=== PATIENT | female | born 1995 | race Caucasian/White ===

== ENCOUNTER 2017-09-24 18:33 | Emergency (ER) | payer MEDICAID ==
[2017-09-24 18:36] VITALS: BMI 32.5
[2017-09-24 18:40] VITALS: BP 116/74; PULSE 95; O2SAT 97
--- NOTE | 2017-09-24 19:28 | C.PDOC ---
History Of Present Illness 21 year old female presents to the emergency department complaining of low grade fever, body aches, sore throat and cough gradually developed for the past 48 hrs. Otherwise, pt denies high fever. headache, dizziness, neck pain, drooling, dypshagia, dyspnea, CP, SOB, wheezing, abd. pain, nausea, vomiting, diarrhea, UTI sx. Ambulate to Ed for evaluation, not in any apparent distress. PMD: Dr. Jerod Olsen Time Seen by Provider: 09/24/17 19:20 Chief Complaint (Nursing): Fever History Per: Patient History/Exam Limitations: no limitations Onset/Duration Of Symptoms: Days (x2) Current Symptoms Are (Timing): Still Present Associated Symptoms: Fever, Sore Throat, Cough Past Medical History Reviewed: Historical Data, Nursing Documentation, Vital Signs Vital Signs: Last Vital Signs Temp 100.5 F H 09/24/17 18:46 Pulse 95 H 09/24/17 18:37 Resp 18 09/24/17 18:37 BP 116/74 09/24/17 18:37 Pulse Ox 97 09/24/17 19:48 - Medical History PMH: Hyperthyroidism, Hypothyroidism Surgical History: Tonsillectomy Other Surgeries: Bariatric Sleeve Surgery - [facility] Procedures APPLICATION OF SPLINT (10/07/14) Family History: States: Unknown Family Hx - Social History Hx Tobacco Use: No Hx Alcohol Use: No Hx Substance Use: No - Immunization History Hx Tetanus Toxoid Vaccination: No Hx Influenza Vaccination: Yes Hx Pneumococcal Vaccination: No Review Of Systems Except As Marked, All Systems Reviewed And Found Negative. Constitutional: Positive for: Fever, Other (Body aches) ENT: Positive for: Throat Pain Cardiovascular: Negative for: Chest Pain Respiratory: Positive for: Cough. Negative for: Shortness of Breath, Sputum Gastrointestinal: Negative for: Nausea, Vomiting, Diarrhea Physical Exam - Physical Exam Appears: Well, Non-toxic, No Acute Distress Skin: Normal Color, Warm, Dry, No Rash Head: Normacephalic Eye(s): bilateral: PERRL Ear(s): Bilateral: Normal Nose: No Flaring, Discharge (scant clear rhinorrhea B/L) Oral Mucosa: Moist, No Drooling Tongue: Normal Appearing Lips: Normal Appearing Throat: Erythema (mild pharyngeal ), No Drooling Neck: Trachea Midline, Supple, Other ((-) meningeal sign) Cardiovascular: Rhythm Regular, No Murmur Respiratory: No Decreased Breath Sounds, No Accessory Muscle Use, No Rales, No Rhonchi, No Wheezing Gastrointestinal/Abdominal: Soft, No Tenderness, No Distention, No Guarding Back: No CVA Tenderness Extremity: Normal ROM, No Pedal Edema, No Deformity Neurological/Psych: Oriented x3 ED Course And Treatment O2 Sat by Pulse Oximetry: 97 (RA) Pulse Ox Interpretation: Normal Progress Note: On re-evaluation, pt is afebrile, hemodynamicaly stable. Nn- toxic, tolerate PO wlel in ED. PulsEOx 97% RA. ENT: no acute findings. Neck : SUpple, (-) meningeal sign. Lungs: CTA B/L, BS equal B/L. Abd: benign, (-) guaridng, (-) rebound. back: (-) CVA tenderness. Pt nakia clinical findings c/w Influenza-like illness. Pt advised. ref. to f/u with PMD in 2-3 days for re- eval. return to ED if any worsening or new changes. Medical Decision Making Medical Decision Making: Time: 19:21 Initial Plan: --Tamiflu Cap 75 mg PO --Tessalon Perles 100 mg PO --Tylenol 326 mg Tab; 650 mg PO --Influenza A B Disposition Counseled Patient/Family Regarding: Studies Performed, Diagnosis, Need For Followup, Rx Given - Disposition Referrals: Jerod Olsen MD [Medical Doctor] - Disposition: HOME/ ROUTINE Disposition Time: 19:24 Condition: STABLE Additional Instructions: ENCOURAGE FLUIDS TAKE MEDICATION PRESCRIBED FOLLOW UP WITH PMD IN 2-3 DAYS FOR RE-EVALUATION. RETURN TO ED IF ANY WORSENING OR NEW CHANGES. Prescriptions: Benzonatate [Tessalon Perle] 100 mg PO TID #14 capsule Oseltamivir Phosphate [Tamiflu] 75 mg PO BID #10 capsule Instructions: Influenza (ED) Forms: [facility] (Nepali), Work Excuse - Clinical Impression Clinical Impression: Influenza-like illness - Scribe Statement The provider has reviewed the documentation as recorded by the Scribe Julia Carlisle All medical record entries made by the Scribe were at my direction and personally dictated by me. I have reviewed the chart and agree that the record accurately reflects my personal performance of the history, physical exam, medical decision making, and the department course for this patient. I have also personally directed, reviewed, and agree with the discharge instructions and disposition.
[2017-09-24 20:02] VITALS: RESP 20; TEMP 99
== END 2017-09-24 20:01 | disposition home or self-care (01) ==
LOC: C.ER 18:33
DX: J11.1 Influenza due to unidentified influenza virus with other respiratory manifestations (principal)

== ENCOUNTER 2018-05-17 17:29 | Emergency (ER) | payer MEDICAID ==
[2018-05-17 17:29] VITALS: BMI 32.5
[2018-05-17 17:38] VITALS: RESP 16; O2SAT 100
--- NOTE | 2018-05-17 19:15 | C.PDOC ---
History Of Present Illness 22 year old female with history of a gastric sleeve presents to the ED for evaluation of occasional dizziness and similar symptoms since 2011. Denies feeling dizzy during visit. Patient has multiple prior ED visits. Reports she took a urine home test at this morning which resulted as negative. Also reports she took all her control pills this morning. Denies constipation, fever, nausea, vomiting, and any other associated symptoms. Time Seen by Provider: 05/17/18 18:52 Chief Complaint (Nursing): Dizziness/Lightheaded History Per: Patient History/Exam Limitations: no limitations Onset/Duration Of Symptoms: Days Current Symptoms Are (Timing): Still Present Past Medical History Reviewed: Historical Data, Nursing Documentation, Vital Signs Vital Signs: Last Vital Signs Temp 98.5 F 05/17/18 17:36 Pulse 57 L 05/17/18 17:36 Resp 16 05/17/18 17:36 BP 112/73 05/17/18 17:36 Pulse Ox 100 05/17/18 17:36 - Medical History PMH: Hyperthyroidism, Hypothyroidism Surgical History: Tonsillectomy - [facility] Procedures APPLICATION OF SPLINT (10/07/14) Family History: States: Unknown Family Hx - Social History Hx Tobacco Use: No Hx Alcohol Use: No Hx Substance Use: No - Immunization History Hx Tetanus Toxoid Vaccination: No Hx Influenza Vaccination: Yes Hx Pneumococcal Vaccination: No Review Of Systems Except As Marked, All Systems Reviewed And Found Negative. Constitutional: Negative for: Fever, Chills Respiratory: Positive for: Other Gastrointestinal: Negative for: Nausea, Vomiting Neurological: Positive for: Dizziness Physical Exam - Physical Exam Appears: Non-toxic, Other (obese. no apparent distress.) Skin: Normal Color, Warm, Dry Head: Atraumatic, Normacephalic Eye(s): bilateral: PERRL Oral Mucosa: Moist Neck: Normal, Supple Chest: Symmetrical, No Deformity Cardiovascular: Rhythm Regular Respiratory: Normal Breath Sounds, No Rales, No Rhonchi, No Stridor, Other (no acute respiratory distress.) Gastrointestinal/Abdominal: Normal Exam, Soft Extremity: Normal ROM, No Tenderness Neurological/Psych: Oriented x3, Normal Speech, Normal Motor, Normal Sensation Gait: Steady ED Course And Treatment O2 Sat by Pulse Oximetry: 100 (RA) Pulse Ox Interpretation: Normal Medical Decision Making Medical Decision Making: occasional dizziness same for years benign exam now home test neg @ home today- declines to repeat U-preg in ED recent w/u 10/08 neg. no indication for repeat w/u with benign exam now. Disposition Doctor Will See Patient In The: Office Counseled Patient/Family Regarding: Studies Performed, Diagnosis - Disposition Referrals: Jerod Olsen MD [Medical Doctor] - Disposition: HOME/ ROUTINE Disposition Time: 19:15 Condition: GOOD Additional Instructions: do not take all your control pills @ one time, may have adverse effects follow-up with your PMD as needed. Instructions: Vertigo (a Type of Dizziness) Forms: [employer] (Mongolian) - Clinical Impression Clinical Impression: Dizziness - Scribe Statement The provider has reviewed the documentation as recorded by the Scribe (Carolyn Centeno) Provider Attestation: All medical record entries made by the Scribe were at my direction and personally dictated by me. I have reviewed the chart and agree that the record accurately reflects my personal performance of the history, physical exam, medical decision making, and the department course for this patient. I have also personally directed, reviewed, and agree with the discharge instructions and disposition.
[2018-05-17 19:27] VITALS: BP 113/72; PULSE 58; TEMP 98.3
== END 2018-05-17 19:25 | disposition home or self-care (01) ==
LOC: C.ER 17:29
DX: R42 Dizziness and giddiness (principal)